=== PATIENT | female | born 1960 | race Two or more races ===

== ENCOUNTER 2020-10-23 06:51 | Day surgery (SDC) | payer OTHER | END 2020-10-23 11:10 | disposition home or self-care (01) | LOC: AMB-ENDOS 06:51 | PROVIDERS: ATTEND Colon & Rectal Surgery | DX: D12.3 Benign neoplasm of transverse colon (principal); D13.1 Benign neoplasm of stomach; K62.1 Rectal polyp; K64.8 Other hemorrhoids; Z20.822 Contact with and (suspected) exposure to COVID-19; Z12.11 Encounter for screening for malignant neoplasm of colon ==

== ENCOUNTER 2021-05-14 12:01 | Emergency (ER) | payer OTHER ==
[~2021-05-14] VITALS: Ht 165.1 cm; Wt 78.0 kg
[2021-05-14] MEDS ORDERED: LIPITOR20 MG (12:13)
[2021-05-14] MEDS ORDERED: COZAAR50 MG PO (12:13)
[2021-05-14] MEDS ORDERED: WELLBUTRIN XL300 MG PO (12:14)
[2021-05-14] MEDS ORDERED: METFORMIN HCL500 MG (12:14)
[2021-05-14] MEDS ORDERED: LEXAPRO5 MG (12:15)
[2021-05-14] MEDS ORDERED: ACETAMINOPHEN650 M2 PO (19:05)
[2021-05-14] MEDS ORDERED: PEPCID20 MG PO (19:05)
[2021-05-14] MEDS ORDERED: LEVSIN0.125 MG PO (19:05)
== END 2021-05-14 19:38 | disposition home or self-care (01) ==
LOC: ER 12:01
DX: R10.84 Generalized abdominal pain (principal); R10.32 Left lower quadrant pain